=== PATIENT | female | born 1990 | race Caucasian/White ===

== ENCOUNTER 2024-11-13 23:04 | Emergency (ER) | payer OTHER, SELFPAY ==
[2024-11-13 23:12] VITALS: BP 146/78; PULSE 104; RESP 22; TEMP 36.8; O2SAT 99; BMI 24.7
--- NOTE | 2024-11-13 23:29 | [facility].EDGENADL ---
Discharge Plan Disposition Patient Disposition: Home, Self-Care Condition: Good Referrals Follow up/Referrals: Addi Collins DO [Staff Physician, Family Practice] - See instructions Referral Note: Establish care Provider,Referral, MD [Primary Care Provider, Medical] - See instructions Activity Restrictions/Add. Instructions Additional Instructions/Restrictions: You were evaluated in the ER and are believed to be appropriate for discharge at this time. Continue any home medications as previously prescribed. You have been referred to Dr. Collins to establish care for primary care. Make an appointment with their office for follow-up and reevaluation. Return to the ER with any new, worsening, or otherwise concerning symptoms. Clinical Impressions Clinical Impression: Medical clearance for incarceration Print Language Print Language: Dutch Discharge ED Provider: Natalie Morfin Adult HPI General Chief complaint: Medical Clearance Stated complaint: medical clearance Time Seen by Provider: 11/13/24 23:19 Mode of Arrival: Ambulatory Source of Information: Patient and Law Enforcement Description of Symptoms (Recalled from ER Triage Doc. by RN): pt reports she is here for medically clearance for incarceration, pt reports no compliants. pt reports she smoked meth at 5pm History of Present Illness HPI narrative: 33-year-old female who reports Suboxone use but no chronic medical conditions presents to the ER with law enforcement for medical clearance. Patient reports no complaints. She states she would not otherwise be in the ER tonight if she had not been brought in by law enforcement. Patient admits to using meth around 5 PM, she smokes it. She denies any history of IV drug use. Denies marijuana use. Patient states she has a small knot that has come up on her back recently that she was going to see a doctor for when she gets a day off but has not yet done that. Patient denies fevers, chills, headache, dizziness, numbness, tingling, weakness, cough, congestion, vision changes, chest pain, difficulty breathing, abdominal pain, nausea, vomiting, diarrhea, dysuria, hematuria, back pain. She reports occasional constipation she believes is related to Suboxone use but overall feeling well. Related Data Allergies Allergy/AdvReac Type Severity Reaction Status Date / Time No Known Allergies Allergy Verified 11/13/24 23:12 [facility] Disclaimer: The information contained in this section may have been updated after the patient was seen, as this information can be updated by other users. Social History Smoking Status: Current every day smoker alcohol intake: current current occupational status: employed Travel in the last 8 weeks?: None ROS Obtained: Yes Systems reviewed as appropriate & no additional complaints except as documented Per HPI Physical Exam General General appearance: alert and in no apparent distress Head Head exam: atraumatic and normocephalic Eye Eye exam: Present PERRL and EOMI ENT ENT exam: Present normal oropharynx, mucous membranes moist and other (Poor dentition) Neck Neck exam: Present normal inspection and full ROM; Absent lymphadenopathy Chest Chest inspection: Present symmetric chest wall rise Respiratory Respiratory exam: Absent respiratory distress or stridor Cardiovascular Cardiovascular exam: Present regular rate (Tachycardia that was present during triage vitals was absent during my exam) and normal rhythm Abdominal Exam Abdominal exam: Present soft; Absent distention or tenderness Extremities Exam Extremities exam: Present full ROM and normal capillary refill; Absent edema, joint swelling or calf tenderness Back Exam Back exam: Present full ROM and tenderness (Small area of mild tenderness just left of midline around the mid lumbar spine in the paraspinal area with no swelling, mass, erythema, induration, or fluctuance. No deformity or step-off. No crepitus. No bruising.); Absent CVA tenderness (R) or CVA tenderness (L) Neurological Exam Neurological exam: Present alert, oriented X3 and CN II-XII intact; Absent motor sensory deficit Psychiatric Psychiatric exam: Present normal affect and normal mood Skin Skin exam: Present warm and dry Medical Decision Making Medical Records Screening: Per USPSTF and CDC recommendations, given the prevalence of disease in our region, it is our hospital?s policy to screen for HIV and viral Hepatitis for all patients aged 18 and over and those with ongoing risk factors. Sonido Inquiry Pt receiving controlled substance: No Vital Signs: 11/13/24 23:12 Temperature 98.2 F Temperature Source Oral Pulse Rate [Right] 104 H Respiratory Rate 22 Blood Pressure [Right Arm] 146/78 H Blood Pressure Mean [Right Arm] 100 02 Sat by Pulse Oximetry 99 Oxygen Delivery Method Room Air Orders (Tests/Meds): ORDERS Category Date Time Status Consult Safety Glass Installer [CONS] Routine Cons 11/13/24 23:28 Active Medical Decision Narrative: In summary, 33-year-old female who takes daily Suboxone presents to the ER with law enforcement for medical clearance. She admits to meth use earlier tonight. She states she would not be in the ER tonight if she had not been brought in by law enforcement and has no specific complaints or concerns but on review of systems does report a knot on her back. On evaluation patient is hemodynamically stable, afebrile, GCS 15, neurologically intact throughout with no deficits, cardiopulmonary exam benign, abdominal exam benign, extremities normal, poor dentition but otherwise normal ENT exam without lymphadenopathy. Back exam demonstrates full range of motion with no evidence of traumatic injury, there is a small area of tenderness in the left lumbar paraspinal area but there is no mass, deformity, step-off, crepitus, bruising, erythema, induration, or other skin changes. It is not in the midline. Patient does not have any vertebral tenderness. She has no deficits and I do not believe this requires further workup at this time. I believe it is most likely an area of muscle spasm. She agrees that it could very well be this because of her work. I do not believe patient requires any further evaluation in the ER at this time and is appropriate for discharge. She was given instructions on continued symptomatic monitoring and management, follow-up including referral to establish care with PCP in [place] which she requested, I placed a consult with seafood technology specialist to follow-up with the patient due to her history of illicit substance and Suboxone use, and she was given strict return precautions for the ER. She indicated understanding and the patient was discharged in stable condition. Critical Care Critical Care Time Critical Care Time: No
[2024-11-13 23:32] VITALS: BP 140/70; PULSE 98; RESP 20; TEMP 36.7; O2SAT 97
== END 2024-11-13 23:33 | disposition home or self-care (01) ==
PROVIDERS: Emergency Provider Emergency Medicine
DX: Z00.8 Encounter for other general examination (principal)
CPT/HCPCS: 99282